=== PATIENT | male | born 1965 | race Caucasian/White ===

== ENCOUNTER 2016-12-03 16:08 | Inpatient (IN) | payer OTHER, MEDICAID ==
[2016-12-03] MEDS ORDERED: Magnesium Hydroxide 10 mL Oral Concentration PO PRN (20:05)
[2016-12-03] MEDS ORDERED: Alum-Mag Hydrox-Simeth 30 mL Suspension PO PRN (20:05)
[2016-12-03] MEDS ORDERED: Benzocaine-Menthol Lozenge 2/Pkg PO PRN (20:05)
[2016-12-03] MEDS ORDERED: LORazepam 1 mg Tablet PO PRN (20:10)
[2016-12-03] MEDS: risperiDONE 1 mg Tablet PO SCH (21:00)
[2016-12-03] MEDS ORDERED: LURA40TA3 (23:25)
[2016-12-03] MEDS ORDERED: PALI1.5T (23:25)
[2016-12-03] MEDS ORDERED: PALI3TAB5 (23:25)
[2016-12-03] MEDS ORDERED: LORA0.5T (23:25)
[2016-12-04] MEDS ORDERED: DIVA250T4 (08:47)
[2016-12-04 14:18] VITALS: BP 131/91; PULSE 108; RESP 16
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
[2016-12-04] MEDS: risperiDONE 1 mg Tablet PO SCH (20:50)
--- NOTE | 2016-12-05 12:20 | PCM.PNPSY ---
Subjective Date of Service Dec 05, 2016 Subjective I spent 30 minutes both reviewing his treatment plan and providing supportive and educational psychotherapy. I spent more than 50% of the time counseling the patient. I reviewed the treatment plan with the patient and discussed options available including the potential risks, benefits and side effects. Cordell reports severe anxiety and fear. His current obsession delusion is that if he does not perform ritualistic pacing circling that he believes that his children will go to [facility]. The Staff reports that he has not been active and is not participating well in one-to-one unit and group activities. Tending to isolate in his room. He slept 3.5 hours. He denies medication side effects. Patient was able to identify his medications and what they were used to treat. He appeared to understand the need for medications by the questions he asked during our discussion. Current Medications Current Medications Fluoxetine HCl 20 mg DAILY PO Last administered on 12/05/16 07:54; Admin Dose 20 MG; Start 12/04/16 at 13:50 Lorazepam 1-2 MG Q4H PRN PO Last administered on 12/03/16 22:27; Admin Dose 2 MG; Start 12/03/16 at 20:10 Risperidone 1.5 mg HS PO Last administered on 12/04/16 20:50; Admin Dose 1.5 MG ; Start 12/03/16 at 21:00 Trazodone HCl 50 mg HS PRN PO Last administered on 12/04/16 22:31; Admin Dose 50 MG; Start 12/03/16 at 22:55 Mental Status Exam Appearance: Neat/well groomed Attitude: Pleasant, Cooperative Behavior: No unusual behavior Affect: Well Modulated/Appropriate Mood: Dysthymic, Anxious, Fearful Thought Process/Associations: Goal Directed Speech Production: Normal Speech Rate: Normal Thought Content: Mandaeism preoccupation, Negativistic, Obsessions/compulsions , Perseveration Danger to Self/Suicidal Ideati: Passive Danger to Others: None Consciousness: Hyper-vigilant Orientation: Person, Place, Date, Situation Memory: Grossly Intact Estimate Intellectual Function: Above Average Basis for IQ estimate: Awareness current events Attention/Concentration & Cogn: Grossly Intact Cognitive Testing Method: Abstract Reasoning during interview, Proverb interpretation Insight: Limited Judgement: Good Mental Health Plan [place] AXIS I 1. Major depressive disorder, recurrent type, nonpsychotic. 2. Obsessive compulsive disorder with both obsessions and compulsions. 3. Generalized anxiety disorder features. AXIS II Deferred. AXIS III None. AXIS IV Stressors are noted for chronic mental health issues, financial difficulties. AXIS V Global assessment of functioning of current 35. Medications Treatments Patient is being provided with a high degree of safety through the structure and active adult engagement. We will focus on developing improved coping skills and identifying stressors that may have led to current episode. We will attempt to: Integrate into therapeutic groups, milieu and individual therapy. Maintain in a closely monitored and structured unit Provide low-stimulation environment Obtain collateral data to assist in treatment planning Assess degree of lability of affect and impulse control Denies thoughts of harm to self and/or others Establish a consistent sleep pattern Medication effective in stabilization of mood and/or thought process Tolerates medication without side effects Patient will be on the following psychiatric medications: 1. Prozac 20 mg with further titration as needed to bring obsessive symptoms to a manageable level 2. Risperdal 1.5 mg q.h.s. based on pharmacy conversion of Invega. 3. Discontinuation of Latuda at patient's request due to limited benefit and excess sedation. 4. Continuation of p.r.n. doses of Ativan Address patient's legal status Voluntary Disposition: Home Anderson Britt MD Dec 05, 2016 12:20
[2016-12-05 14:22] VITALS: BP 117/60; PULSE 81; RESP 16
[2016-12-05] MEDS: risperiDONE 1 mg Tablet PO SCH (20:12)
--- NOTE | 2016-12-06 12:13 | PCM.PNPSY ---
Subjective Date of Service Dec 06, 2016 Subjective I spent 30 minutes both reviewing his treatment plan and providing supportive and educational psychotherapy. I spent more than 50% of the time counseling the patient. I reviewed the treatment plan with the patient and discussed options available including the potential risks, benefits and side effects. Cordell reports continued severe anxiety and fear. He feels he may be 25% improved. His current obsession delusion is that if he does not perform ritualistic pacing circling that he believes that his children will go to [facility]. The Staff reports that he has not been active and is not participating well in one-to-one unit and group activities. Tending to isolate in his room. He slept 7 hours. He denies medication side effects. Current Medications Current Medications Fluoxetine HCl 20 mg DAILY PO Last administered on 12/06/16t 09:13; Admin Dose 20 MG; Start 12/04/16 at 13:50 Mental Status Exam Appearance: Neat/well groomed Attitude: Pleasant, Cooperative Behavior: No unusual behavior Affect: Well Modulated/Appropriate Mood: Dysthymic, Anxious, Fearful Thought Process/Associations: Goal Directed Speech Production: Normal Speech Rate: Normal Thought Content: Rastafari preoccupation, Negativistic, Obsessions/compulsions , Perseveration Danger to Self/Suicidal Ideati: Passive Danger to Others: None Consciousness: Hyper-vigilant Orientation: Person, Place, Date, Situation Memory: Grossly Intact Estimate Intellectual Function: Above Average Basis for IQ estimate: Awareness current events Attention/Concentration & Cogn: Grossly Intact Cognitive Testing Method: Abstract Reasoning during interview, Proverb interpretation Insight: Limited Judgement: Good Mental Health Plan [place] AXIS I 1. Major depressive disorder, recurrent type, nonpsychotic. 2. Obsessive compulsive disorder with both obsessions and compulsions. 3. Generalized anxiety disorder features. AXIS II Deferred. AXIS III None. AXIS IV Stressors are noted for chronic mental health issues, financial difficulties. AXIS V Global assessment of functioning of current 35. Medications Treatments Patient is being provided with a high degree of safety through the structure and active adult engagement. We will focus on developing improved coping skills and identifying stressors that may have led to current episode. We will attempt to: Integrate into therapeutic groups, milieu and individual therapy. Maintain in a closely monitored and structured unit Provide low-stimulation environment Obtain collateral data to assist in treatment planning Assess degree of lability of affect and impulse control Denies thoughts of harm to self and/or others Establish a consistent sleep pattern Medication effective in stabilization of mood and/or thought process Tolerates medication without side effects Patient will be on the following psychiatric medications: 1. Prozac 20 mg with further titration as needed to bring obsessive symptoms to a manageable level 2. Risperdal 1.5 mg q.h.s. based on pharmacy conversion of Invega. 3. Discontinuation of Latuda at patient's request due to limited benefit and excess sedation. 4. Continuation of p.r.n. doses of Ativan Address patient's legal status Voluntary Disposition: Home Anderson Britt MD Dec 06, 2016 12:13
[2016-12-06 18:43] VITALS: BP 147/88; PULSE 102
[2016-12-06] MEDS: risperiDONE 1 mg Tablet PO SCH (20:59)
--- NOTE | 2016-12-07 19:01 | PCM.PNPSY ---
Subjective Date of Service Dec 07, 2016 Subjective The patient reports that he is "doing OCD rituals uncontrollably." He reports that he "is trying to remember every single thought." He reports that when he does not he suffers increased anxiety. He is denying side effects from the fluoxetine. He reports possibly some decrease in anxiety. He reports using cognitive behavioral therapy in the community is not using any worksheets. Sleep: 7.75+ hours Appetite: Fine Suicidal and homicidal ideation: denies Auditory hallucinations: denies Visual hallucinations: denies Other Psychotic Symptoms: denies Anxiety: 03/01 Depression: 03/31 Current Medications Current Medications Fluoxetine HCl 20 mg ONCE ONCE PO Last administered on 12/07/16t 15:00; Admin Dose 20 MG; Start 12/07/16 at 14:45; Stop 12/07/16 at 14:46; Status DC Mental Status Exam Appearance: Neat/well groomed Attitude: Cooperative, Guarded Behavior: No unusual behavior Affect: Restricted Mood: Dysthymic, Anxious Thought Process/Associations: Goal Directed Speech Production: Paucity Speech Rate: Lags/Latency Speech Articulation: Normal Thought Content: Negativistic, Obsessions/compulsions, Perseveration Danger to Self/Suicidal Ideati: None Danger to Others: None Hallucinations: Auditory (Denies), Visual (Denies) Consciousness: Hyper-vigilant Orientation: Person, Place, Date, Situation Memory: Grossly Intact Estimate Intellectual Function: Average Attention/Concentration & Cogn: Grossly Intact Insight: Limited Judgement: Limited Mental Health Plan The patient is a 51-year-old male with a history of obsessive-compulsive disorder who presents with worsening symptoms and is admitted on a voluntary basis. He is reporting no side effects from his current medications although will likely need an increased dose to address his current symptoms. [place] AXIS I 1. Major depressive disorder, recurrent type, nonpsychotic. 2. Obsessive compulsive disorder with both obsessions and compulsions. 3. Generalized anxiety disorder features. AXIS II Deferred. AXIS III None. AXIS IV Stressors are noted for chronic mental health issues, financial difficulties. AXIS V Global assessment of functioning of current 35. Medications Fluoxetine 20 mg daily Trazodone 50 mg nightly as needed Risperidone 1.5 mg nightly Treatments 1. The patient is encouraged to participate with group and milieu therapy. 2. The patient is encouraged to continue medications as prescribed. 3. The patient will meet with the treatment team on a daily basis to assess symptoms, side effects, and response to treatment. 4. Increase fluoxetine to 40 mg daily and titrate to a maximum of 80 mg daily as tolerated. 5. Awaiting requested records from [facility]. 6. Estimated length of stay 5-7 days. Cj Allen MD Dec 07, 2016 19:01
[2016-12-07] MEDS: risperiDONE 1 mg Tablet PO SCH (20:46)
[2016-12-08 08:50] VITALS: BP 123/79; PULSE 94; RESP 16
[2016-12-08] MEDS ORDERED: hydrOXYzine Pamoate 25 mg Capsule PO PRN (16:20)
--- NOTE | 2016-12-08 17:53 | PCM.PNPSY ---
Subjective Date of Service Dec 08, 2016 Subjective Spoke with patient today who reported "I feel relaxed today. My obsessions are better." He reported that they are approximately 40% today compared to 80% yesterday. He reported that yesterday was "a hard day." He reports further that he has a hard time putting his thoughts into words. When going over and OCD worksheet, the patient reported that his obsessive thoughts are that his daughter will not be able to live in the afterlife. He denies any intent to harm her or that she will be dying soon. After reviewing records from [facility] and talking to Dr. Guerda Carrero further history was obtained. The patient reported that starting at the age of 22 he went to [place] during the summer months and experienced several days at a time where he would have increased energy and decreased need for sleep and possibly decreased appetite. He also reported that during these periods of time his obsessive compulsive symptoms were decreased. He reported that upon returning he kept his OCD symptoms at bay by using a "snapping" of his hand to interrupt the thoughts. 3 years ago when he returned to [place] and following that episode he was unable to use the same technique to stop his intrusive thoughts. They also appeared to become more bizarre over time and less reality based. He reports that fluoxetine did help in the past although at 80 mg did cause irritability. He denied that Paxil caused suicidality. Sleep: "Not very much just laying there." Appetite: Okay Suicidal and homicidal ideation: Denies Auditory hallucinations/Visual hallucinations: Denies Other Psychotic Symptoms: Appears to have some thought blocking and rapid blink rate. Anxiety: 5/10 Depression: 3-4/10 Current Medications Current Medications Fluoxetine HCl 20 mg ONCE ONCE PO Last administered on 12/07/16 15:00; Admin Dose 20 MG; Start 12/07/16 at 14:45; Stop 12/07/16 at 14:46; Status DC Fluoxetine HCl 40 mg DAILY PO Last administered on 12/08/16 08:30; Admin Dose 40 MG; Start 12/08/16 at 08:30 Hydroxyzine Pamoate 50 mg Q6H PRN PO Last administered on 12/08/16 16:41; Admin Dose 50 MG; Start 12/08/16 at 16:20 Mental Status Exam Appearance: Neat/well groomed Attitude: Cooperative, Guarded Behavior: Overtly anxious, Other (patient started and stopped during the interview in response to compulsion.) Affect: Restricted Mood: Dysthymic, Anxious Thought Process/Associations: Goal Directed Speech Production: Paucity Speech Rate: Lags/Latency Speech Articulation: Normal Thought Content: Negativistic, Obsessions/compulsions, Perseveration Danger to Self/Suicidal Ideati: None Danger to Others: None Hallucinations: Auditory (Denies), Visual (Denies) Consciousness: Hyper-vigilant Orientation: Person, Place, Date, Situation Memory: Grossly Intact Estimate Intellectual Function: Average Attention/Concentration & Cogn: Grossly Intact Insight: Limited Judgement: Limited Mental Health Plan The patient is a 51-year-old male with a history of obsessive-compulsive disorder who presents with worsening symptoms and is admitted on a voluntary basis. Review of records and discussion with his outpatient provider clarified that the patient has had poor response to typical medications used to treat obsessive-compulsive disorder. His outpatient provider believes that the lurasidone was more effective than risperidone and caused fewer side effects as he experienced akathisia even with low-dose Invega. The patient's outpatient provider has been consulting with [facility] and given his history believes that there may be a bipolar component as evidenced by his insomnia and increased goal-directed activity during the summer months while in [place]. The patient appears to never have had manic flipping. Is unclear whether the patient may now be experiencing psychotic symptoms along with his depression. His days of chaitanya or hypomania were only a few followed by weeks of depression. After discussion with Dr. Carrero, she would prefer the patient to be on lurasidone with lithium and no SSRI. Given the patient's history of recurrent depression and obsessive-compulsive disorder, and lack of manic flipping, continuing fluoxetine seems warranted and was discussed with his outpatient provider. The patient was agreeable to changing risperidone to lurasidone and adding lithium. [place] AXIS I 1. Major depressive disorder, recurrent type, possibly psychotic 2. Obsessive compulsive disorder with both obsessions and compulsions. 3. Generalized anxiety disorder features. 4. Rule out bipolar disorder AXIS II Deferred. AXIS III None. AXIS IV Stressors are noted for chronic mental health issues, financial difficulties. AXIS V Global assessment of functioning of current 35. Medications Fluoxetine 40 mg daily Trazodone 50 mg nightly as needed Risperidone 1.5 mg nightly Treatments 1. The patient is encouraged to participate with group and milieu therapy. 2. The patient is encouraged to continue medications as prescribed. 3. The patient will meet with the treatment team on a daily basis to assess symptoms, side effects, and response to treatment. 4. Continue fluoxetine 40 mg daily 5. Discontinue risperidone 6. Lurasidone 40 mg daily with food 7. Eskalith 900 mg nightly 8. The patient is to continue using OCD CBT worksheets 9. Estimated length of stay 5-7 days. Cj Allen MD Dec 08, 2016 17:53
[2016-12-09 10:26] VITALS: BP 117/72; PULSE 76
--- NOTE | 2016-12-09 20:49 | PCM.PNPSY ---
Subjective Date of Service Dec 09, 2016 Subjective Patient reports that he is feeling better today but had an anxiety attack this morning related to obsessions that lasted just a minute or so. He reported this morning that his obsessions were the same as yesterday but was thinking somewhat more clearly. He reported that Vistaril was helpful for anxiety. He reported that he would like more room on the CBT worksheets. Later in the evening the patient reported that he was feeling much better and felt that the medications were beginning to help him. He denied any side effects. Sleep: 9.5+ hours, pretty good. Appetite: Okay Suicidal and homicidal ideation: Denies Auditory hallucinations/Visual hallucinations: Denies Other Psychotic Symptoms: Denies Anxiety: 03/01 Depression: 03/01 Current Medications Current Medications Fluoxetine HCl 40 mg DAILY PO Last administered on 12/09/16 09:13; Admin Dose 40 MG; Start 12/08/16 at 08:30 Hydroxyzine Pamoate 50 mg Q6H PRN PO Last administered on 12/08/16 16:41; Admin Dose 50 MG; Start 12/08/16 at 16:20 [place] Carbonate 900 mg HS PO Last administered on 12/08/16 21:28; Admin Dose 900 MG; Start 12/08/16 at 21:00 Lurasidone HCl 40 mg DAILYWM PO Last administered on 12/09/16 09:13; Admin Dose 40 MG; Start 12/09/16 at 08:00 Mental Status Exam Appearance: Neat/well groomed Attitude: Cooperative, Guarded Behavior: Overtly anxious Affect: Restricted Mood: Dysthymic, Anxious Thought Process/Associations: Goal Directed Speech Production: Paucity Speech Rate: Normal Speech Articulation: Normal Thought Content: Negativistic, Obsessions/compulsions, Perseveration Danger to Self/Suicidal Ideati: None Danger to Others: None Hallucinations: Auditory (Denies), Visual (Denies) Consciousness: Hyper-vigilant Orientation: Person, Place, Date, Situation Memory: Grossly Intact Estimate Intellectual Function: Average Attention/Concentration & Cogn: Grossly Intact Insight: Limited Judgement: Limited Mental Health Plan The patient is a 51-year-old male with a history of obsessive-compulsive disorder who presents with worsening symptoms and is admitted on a voluntary basis. Review of records and discussion with his outpatient provider clarified that the patient has had poor response to typical medications used to treat obsessive-compulsive disorder. His outpatient provider believes that the lurasidone was more effective than risperidone and caused fewer side effects as he experienced akathisia even with low-dose Invega. The patient's outpatient provider has been consulting with [facility] and given his history believes that there may be a bipolar component as evidenced by his insomnia and increased goal-directed activity during the summer months while in [place]. The patient appears to never have had manic flipping. Is unclear whether the patient may now be experiencing psychotic symptoms along with his depression. His days of chaitanya or hypomania were only a few followed by weeks of depression. After discussion with Dr. Carrero, she would prefer the patient to be on lurasidone with lithium and no SSRI. Given the patient's history of recurrent depression and obsessive-compulsive disorder, and lack of manic flipping, continuing fluoxetine seems warranted and was discussed with his outpatient provider. The patient was agreeable to changing risperidone to lurasidone and adding lithium. The patient reports today that he feels that the medications seem to be helping. We have scheduled a family meeting to occur tomorrow at 10:30. [place] AXIS I 1. Major depressive disorder, recurrent type, possibly psychotic 2. Obsessive compulsive disorder with both obsessions and compulsions. 3. Generalized anxiety disorder features. 4. Rule out bipolar disorder AXIS II Deferred. AXIS III None. AXIS IV Stressors are noted for chronic mental health issues, financial difficulties. AXIS V Global assessment of functioning of current 35. Medications Fluoxetine 40 mg daily Trazodone 50 mg nightly as needed Latuda 40 mg by mouth daily with food Eskalith 900 mg nightly Vistaril 50 mg as needed for anxiety Treatments 1. The patient is encouraged to participate with group and milieu therapy. 2. The patient is encouraged to continue medications as prescribed. 3. The patient will meet with the treatment team on a daily basis to assess symptoms, side effects, and response to treatment. 4. Continue fluoxetine 40 mg daily 5. Family meeting at 10: 30 AM on 12/10/2016 with and patient. 6. Lurasidone 40 mg daily with food 7. Eskalith 900 mg nightly 8. The patient is to continue using OCD CBT worksheets 9. Estimated length of stay 5-7 days. Cj Allen MD Dec 09, 2016 20:49
[2016-12-10 10:40] VITALS: BP 140/92; PULSE 84; RESP 16
--- NOTE | 2016-12-10 22:31 | PCM.PNPSY ---
Subjective Date of Service Dec 10, 2016 Subjective The patient reported that his obsessions were overall decreased today and were about 40%. He reported that his anxiety and depression were both decreased. Family meeting held today for approximately 60 minutes with and mother-in- law. Discussed treatment plan and medications as well as need for CBT, use of relaxation techniques and prolonged period of treatment. Family and patient both report that patient improved over 12/08/16. No side effects. Restlessness resolved. Patient reported difficulty taking shower and dressing. Discussed exposure and response prevention, using example of not avoiding shower and instead standing in shower q shift clothed until anxiety reduced. Patient agreeable and later in day took shower. Sleep: 7+ hours Appetite: okay Suicidal and homicidal ideation: denies Auditory hallucinations/Visual hallucinations: denies Other Psychotic Symptoms: obsession/compulsions Anxiety: 4/10 obsessions Depression: somewhat improved. Current Medications Current Medications [place] Carbonate 900 mg HS PO Last administered on 12/09/16 20:46; Admin Dose 900 MG; Start 12/08/16 at 21:00 Lurasidone HCl 40 mg DAILYWM PO Last administered on 12/10/16 08:34; Admin Dose 40 MG; Start 12/09/16 at 08:00 Mental Status Exam Vital Signs Vital Signs Date Time Temp Pulse Resp B/P Pulse Ox O2 Delivery O2 Flow Rate FiO2 12/10/16 10:40 36.2 84 16 140/92 Appearance: Neat/well groomed Attitude: Cooperative, Guarded Behavior: Overtly anxious Affect: Restricted Mood: Dysthymic, Anxious Thought Process/Associations: Goal Directed Speech Production: Paucity Speech Rate: Normal Speech Articulation: Normal Thought Content: Negativistic, Obsessions/compulsions, Perseveration Danger to Self/Suicidal Ideati: None Danger to Others: None Hallucinations: Auditory (Denies), Visual (Denies) Consciousness: Hyper-vigilant Orientation: Person, Place, Date, Situation Memory: Grossly Intact Estimate Intellectual Function: Average Attention/Concentration & Cogn: Grossly Intact Insight: Limited Judgement: Limited Mental Health Plan The patient is a 51-year-old male with a history of obsessive-compulsive disorder who presents with worsening symptoms and is admitted on a voluntary basis. Review of records and discussion with his outpatient provider clarified that the patient has had poor response to typical medications used to treat obsessive-compulsive disorder. His outpatient provider believes that the lurasidone was more effective than risperidone and caused fewer side effects as he experienced akathisia even with low-dose Invega. The patient's outpatient provider has been consulting with [facility] and given his history believes that there may be a bipolar component as evidenced by his insomnia and increased goal-directed activity during the summer months while in [place]. The patient appears to never have had manic flipping. Is unclear whether the patient may now be experiencing psychotic symptoms along with his depression. His days of chaitanya or hypomania were only a few followed by weeks of depression. After discussion with Dr. Carrero, she would prefer the patient to be on lurasidone with lithium and no SSRI. Given the patient's history of recurrent depression and obsessive-compulsive disorder, and lack of manic flipping, continuing fluoxetine seems warranted and was discussed with his outpatient provider. The patient was agreeable to changing risperidone to lurasidone and adding lithium. The patient reports his gains were maintained over yesterday. Although improved , he has difficulty assessing the change in his condition. Encouraged patient to journal his thoughts and feelings and use CBT log sheet. [place] AXIS I 1. Major depressive disorder, recurrent type, possibly psychotic 2. Obsessive compulsive disorder with both obsessions and compulsions. 3. Generalized anxiety disorder features. 4. Rule out bipolar disorder AXIS II Deferred. AXIS III None. AXIS IV Stressors are noted for chronic mental health issues, financial difficulties. AXIS V Global assessment of functioning of current 35. Medications Fluoxetine 40 mg daily Trazodone 50 mg nightly as needed Latuda 40 mg by mouth daily with food Eskalith 900 mg nightly Vistaril 50 mg as needed for anxiety Treatments 1. The patient is encouraged to participate with group and milieu therapy. 2. The patient is encouraged to continue medications as prescribed. 3. The patient will meet with the treatment team on a daily basis to assess symptoms, side effects, and response to treatment. 4. Continue fluoxetine 40 mg daily 5. Patient to use flooding as noted above. 6. Lurasidone 40 mg daily with food 7. Eskalith 900 mg nightly 8. The patient is to continue using OCD CBT worksheets 9. Estimated length of stay 5-7 days. Cj Allen MD Dec 10, 2016 18:32
[2016-12-11 08:15] VITALS: BP 135/86; PULSE 80; RESP 16
--- NOTE | 2016-12-11 18:24 | PCM.PNPSY ---
Subjective Date of Service Dec 11, 2016 Subjective The patient reports that his obsessions have decreased to approximately percent. He felt that the family meeting did not go too well yesterday as his is concerned about the extent of his illness. The patient remained in the shower room and then took a shower. He reported that this exposure significantly decreased his overall anxiety around taking a shower. He denied any panic attacks today. We discussed using thought records and the patient is provided with a simplified obsession compulsion rituals records as well as a daily exposure practice form. The patient will use the rubber band technique can snap his wrists when he has obsessions. He denied side effects. No medical complaints. Sleep: 8+ hours, "not the greatest"due to the mattress Appetite:. "Skipped breakfast" otherwise okay. Suicidal and homicidal ideation: Denies Auditory hallucinations: Denies Visual hallucinations: Denies Other Psychotic Symptoms: Denies Anxiety: 4-03/31 Depression: 01/29 Mental Status Exam Appearance: Neat/well groomed Attitude: Cooperative, Guarded Behavior: Overtly anxious Affect: Restricted Mood: Anxious Thought Process/Associations: Goal Directed Speech Production: Paucity Speech Rate: Normal Speech Articulation: Normal Thought Content: Negativistic, Obsessions/compulsions, Perseveration Danger to Self/Suicidal Ideati: None Danger to Others: None Hallucinations: Auditory (Denies), Visual (Denies) Consciousness: Hyper-vigilant Orientation: Person, Place, Date, Situation Memory: Grossly Intact Estimate Intellectual Function: Average Attention/Concentration & Cogn: Grossly Intact Insight: Limited Judgement: Limited Mental Health Plan The patient is a 51-year-old male with a history of obsessive-compulsive disorder who presents with worsening symptoms and is admitted on a voluntary basis. Review of records and discussion with his outpatient provider clarified that the patient has had poor response to typical medications used to treat obsessive-compulsive disorder. His outpatient provider believes that the lurasidone was more effective than risperidone and caused fewer side effects as he experienced akathisia even with low-dose Invega. The patient's outpatient provider has been consulting with [facility] and given his history believes that there may be a bipolar component as evidenced by his insomnia and increased goal-directed activity during the summer months while in [place]. His days of chaitanya or hypomania were only a few followed by weeks of depression. The patient appears to never have had manic flipping. It is unclear whether the patient may now be experiencing psychotic symptoms along with his depression. After discussion with Dr. Carrero, she would prefer the patient to be on lurasidone with lithium and no SSRI. Given the patient's history of recurrent depression and obsessive-compulsive disorder, and lack of manic flipping, continuing fluoxetine seems warranted and was discussed with his outpatient provider. The patient was agreeable to changing risperidone to lurasidone and adding lithium. The patient reports an improvement in his obsessions today and use exposure therapy with the shower effectively. He was given daily exposure forms as well as obsessive-compulsive rituals diary form. Although the patient has noted an improvement he does not feel that he is quite able to return to home. [place] AXIS I 1. Major depressive disorder, recurrent type, without psychosis 2. Obsessive compulsive disorder with both obsessions and compulsions. 3. Generalized anxiety disorder features. AXIS II Deferred. AXIS III None. AXIS IV Stressors are noted for chronic mental health issues, financial difficulties. AXIS V Global assessment of functioning of current 35. Medications Fluoxetine 40 mg daily Latuda 40 mg by mouth daily with food Eskalith 900 mg nightly Trazodone 50 mg nightly as needed Vistaril 50 mg as needed for anxiety Treatments 1. The patient is encouraged to participate with group and milieu therapy. 2. The patient is encouraged to continue medications as prescribed. 3. The patient will meet with the treatment team on a daily basis to assess symptoms, side effects, and response to treatment. 4. Patient to use exposure and obsession/compulsion logs as noted above. 5. Continue fluoxetine 40 mg daily 6. Lurasidone 40 mg daily with food 7. Eskalith 900 mg nightly 8. Estimated length of stay 2-3 days. 9. [place] level and CMP in am. Cj Allen MD Dec 11, 2016 18:24
--- NOTE | 2016-12-12 11:11 | PROG NOTE ---
[address] [address] PROGRESS NOTE PATIENT: HERBERT TRUONG : 1965 MR#: [id number] ADMIT: 12/03/2016 JOB ID: [id number] DATE: 12/12/2016 SUBJECTIVE: A 51-year-old gentleman hospitalized voluntarily on this unit December 03, 2016. Patient seen and discussed with staff. DIAGNOSIS: Major depression, recurrent, OCD. No acute medical issues or pain issues in this patient. MEDICATIONS: 1. [place] 900 at night. 2. Latuda 40 mg a day. 3. Prozac 40 mg in the morning. He states he had a lithium level done when he came in. I do not have the results of that. I will confirm that it is in the therapeutic range. He still continues to have some degree of compulsions. He appears to have financial stressors. He has had stressors with his daughter but does admit that with the medication he is better. He states he has had therapy in the past but that helped for a while and then quit working. His anxiety is still significant. No significant depression or suicidal ideation. No spontaneous delusions. No hallucinatory behavior. We will continue to work with his medications. Encourage him to participate in the treatment modalities of the unit. Educate him regarding the nature of the disorder and work on relaxation techniques and response prevention.
[2016-12-12 12:28] VITALS: BP 121/65; PULSE 63; RESP 16
[2016-12-13 13:19] VITALS: BP 148/92; PULSE 82; RESP 18
--- NOTE | 2016-12-13 15:37 | PROG NOTE ---
[address] [address] PROGRESS NOTE PATIENT: HERBERT TRUONG : 1965 MR#: [id number] ADMIT: 12/03/2016 JOB ID: [id number] DATE: 12/13/2016 A 51-year-old, gentleman hospitalized voluntarily on this unit, December 03, 2016. DIAGNOSES: 1. Major depression, recurrent. 2. Obsessive compulsive disorder, No acute medical issues. MEDICATIONS: 1. [place] 900 mg at night. [place] level 0.7 in the morning which is in the therapeutic range. 2. Latuda 40 mg a day. 3. Prozac 40 mg a day. He had a good evening, about 7+ hours of sleep. No PRNS used, out of the room more in the later part of the day. He is focused on wanting to leave. He wants know how long his insurance is going to cover his stay here. Overall, he has been compliant with care. There is no spontaneous delusion sensation. There are no verbalizations of harm to himself or others. I deferred his discharge plan to Dr. Britt and told him to talk to Dr. Britt tomorrow when they see each other. His management stays the same. No acute pain issues.
[2016-12-14] MEDS ORDERED: LIT450 PO (12:15)
[2016-12-14] MEDS ORDERED: HYDR-3797 PO (12:15)
[2016-12-14] MEDS ORDERED: TRAZ-115 PO (12:15)
[2016-12-14] MEDS ORDERED: FLUO20CA25 PO (12:15)
[2016-12-14] MEDS ORDERED: LURA40TA3 PO (12:15)
--- NOTE | 2016-12-14 12:20 | PCM.DIMED ---
Discharge Instructions Date of Service Dec 14, 2016 Dates of Hospitalization Dec 03, 2016 at 19:17 Discharge Diagnosis Discharge Diagnosis 1. Major depressive disorder, recurrent type, nonpsychotic. 2. Obsessive compulsive disorder with both obsessions and compulsions. 3. Generalized anxiety disorder features. AXIS II Deferred. AXIS III None. AXIS IV Stressors are noted for chronic mental health issues, financial difficulties. AXIS V Global assessment of functioning of current 40 Medication Instructions I Strongly encouraged patient to follow up with outpatient care: 1-Recommended patient takes medication as prescribed and not alter this unless under the direct care of a provider: Fluoxetine 40 mg daily Latuda 40 mg by mouth daily with food Eskalith 900 mg nightly Trazodone 50 mg nightly as needed Vistaril 50 mg as needed for anxiety 2-Recommend client refrain from recreational drugs and alcohol while taking psychiatric medications. 3-Recommend client start a behavioral therapy desensitization program to deal with issues of obsessions and compulsions. 4-Recommend patient attempt to find a therapist or group to deal with interpersonal relationship conflicts Diet No restrictions Activity No restrictions Call your provider Fever or Chills Patient Instructions Follow-up with therapist Anisha 12/18/2016 and 1 [address] Follow up [address] Dr[address] Guerda Carrero 12/21/2016 at 1 PM Both appointments or walked from [facility] in [place] Follow-up with PCP in: 2 weeks Anderson Britt MD Dec 14, 2016 12:20
--- NOTE | 2016-12-15 09:28 | DIS ---
[address] [address] DISCHARGE SUMMARY PATIENT: HERBERT TRUONG : 1965 MR#: [id number] ADMIT: 12/03/2016 JOB ID: [id number] DIS: 12/14/2016 IDENTIFICATION: The patient is a 51-year-old white male, who lives with his of 20 years and a 17-year-old daughter. REASON FOR ADMISSION: Client complaining of increasing depression, severe OCD symptoms and suicidal thoughts. SUMMARY OF PRESENT ILLNESS: The patient is a 51-year-old white male with severe OCD. Prior to admission, he had diagnoses of both OCD and depression and is monitored through [facility] in [facility] by Dr. Anisha Carrero. He had been receiving injections of Invega and takes Latuda as well. He has had trials of multiple different antidepressants with a subjectively poor response. His current obsession is that he believes that if he does not perform ritual pacing and circling that he believes the children will go to [facility]. HOSPITAL COURSE: Client was admitted to our unit and provided the high degree of safety through the structure and active adult engagement he received here. We had him participate in one-to-one unit and group activities focused on improving coping skills and decreasing symptoms of anxiety. We also worked with him to come up with a safety plan should suicidal ideation intensify after discharge. Client participated well in all the above activities and made gradual improvement throughout his stay. Client was also treated with a combination of new medications. His Invega was discontinued and he was started on a regimen of Prozac, Latuda and lithium. The Prozac was increased to 40 per day. The Latuda was increased to 40 per day and the lithium was increased to 900 h.s. Client had a partial improvement with his medication regimen. He continues to have fairly severe symptoms of obsession and compulsion. However, he is denying suicidal ideation, plan or intent and I believe that he is appropriate to continue this work on an outpatient basis. MENTAL STATUS: Client neatly dressed. Good eye contact. Behavior was somewhat restless with pacing. His attitude was cooperative and pleasant. Speech normal rate and rhythm. Mood anxious. Affect restricted, moderate intensity. Thought process: Client is able to relate a coherent history. He is able to appreciate complex abstractions. No signs of psychosis. Thought content is significant for themes of concern how to continue to improve as an outpatient. He denied suicidal ideation, plan or intent. Alert and oriented to person, place and date. Insight and judgment were good. Impulse control highly contained but unable to handle impulses of fear. Reality testing intact. Competence to handle current stressors appears to be at baseline. DISCHARGE DIAGNOSIS: AXIS I 1. Major depressive disorder, recurrent, nonpsychotic. 2. Obsessive compulsive disorder with both obsessions and compulsions. 3. General anxiety disorder. AXIS II Defer. AXIS III None. AXIS IV Moderate. AXIS V Current global assessment of functioning equal to 40. DISCHARGE MEDICATIONS: 1. Prozac 40 daily. 2. Latuda 40 daily. 3. Eskalith 900 h.s. ACTIVITY AND DIET: No restrictions. CONDITION ON DISCHARGE: Fair. PROGNOSIS: Guarded. Client really needs desensitization, behavioral therapy but is unable to tolerate this level of therapy at this time. FOLLOWUP: 1. Anisha, psychotherapist, [facility] December 18, 2016 at 1 p.m. 2. Antoni Carrero, [facility], December 21, 2016, at 3 p.m. LISA
== END 2016-12-14 12:40 | disposition home or self-care (01) | DRG 885 ==
LOC: MHC 19:17
PROVIDERS: ADMIT Psychiatry & Neurology Psychiatry; ATTEND Psychiatry & Neurology Psychiatry
DX: F33.2 Major depressive disorder, recurrent severe without psychotic features (principal); R45.851 Suicidal ideations; F60.5 Obsessive-compulsive personality disorder; F41.1 Generalized anxiety disorder